=== PATIENT | male | born 1950 | race Caucasian/White ===

== ENCOUNTER → 2018-09-10 16:41 | Outpatient (CLI) | payer MEDICARE ==
[2011-04-02 10:33] VITALS: BMI 28.9
== END | disposition home or self-care (01) ==
LOC: D.MRI 16:30
DX: M25.462 Effusion, left knee (principal)

== ENCOUNTER 2020-04-30 23:58 | Emergency (ER) | payer MEDICARE ==
[~2020-04-30] VITALS: Ht 172.7 cm; Wt 79.5 kg
[2020-05-01 00:03] VITALS: Ht 172.7 cm; Wt 79.5 kg
[2020-05-01] MEDS ORDERED: BACTRIM DS TAB1 EAC1 PO (00:30)
[2020-05-01] MEDS ORDERED: STERAPRED 5MG 65 M1 PO (00:30)
[2020-05-01 00:55] VITALS: BP 122/70
== END 2020-05-01 00:37 | disposition home or self-care (01) ==
LOC: D.ER 23:58
DX: J01.90 Acute sinusitis, unspecified (principal); J02.9 Acute pharyngitis, unspecified; R51 Headache; Z72.0 Tobacco use